=== PATIENT | female | born 1980 | race Caucasian/White ===

== ENCOUNTER → 2017-07-25 | Outpatient (CLI) | payer BC ==
[~2017-07-25] MED LIST: CEPHALEXIN500 M1 PO; MOTRIN 800800 MG/TAB PO; PERCOCET 325 MG1 TA2 PO; PRENATAL1 TA1 PO
== END ==
LOC: MC.RAD 07-01 14:40
DX: Z12.39 Encounter for other screening for malignant neoplasm of breast (principal); N63.21 Unspecified lump in the left breast, upper outer quadrant

== ENCOUNTER → 2017-08-10 | Outpatient (CLI) | payer BC | LOC: MC.RAD 08-03 14:00 | DX: N60.82 Other benign mammary dysplasias of left breast (principal); R92.1 Mammographic calcification found on diagnostic imaging of breast ==

== ENCOUNTER → 2019-01-17 | Outpatient (CLI) | payer BC | LOC: MC.RAD 13:43 | DX: N63.11 Unspecified lump in the right breast, upper outer quadrant (principal) | CPT/HCPCS: G0279 ==

== ENCOUNTER → 2019-07-23 | Outpatient (CLI) | payer BC | LOC: MC.RAD 08:54 | DX: R92.0 Mammographic microcalcification found on diagnostic imaging of breast (principal) | CPT/HCPCS: G0279 ==

== ENCOUNTER → 2021-09-04 | Outpatient (CLI) | payer BC | LOC: MC.RAD 14:24 | DX: Z12.31 Encounter for screening mammogram for malignant neoplasm of breast (principal) ==

== ENCOUNTER → 2021-09-14 | Outpatient (CLI) | payer BC | LOC: MC.RAD 08:38 | DX: N64.89 Other specified disorders of breast (principal) ==